=== PATIENT | male | born 1980 | race Caucasian/White ===

== ENCOUNTER 2017-04-03 19:41 | Emergency (ER) | payer MEDICAID ==
[~2017-04-03] VITALS: Ht 167.6 cm; Wt 74.0 kg
[2017-04-04 00:30] VITALS: BP 119/62
== END 2017-04-04 01:10 | disposition home or self-care (01) ==
LOC: ER 04-04 00:29
DX: H66.91 Otitis media, unspecified, right ear (principal)
CPT/HCPCS: 99283